=== PATIENT | male | born 1975 | race Caucasian/White ===

== ENCOUNTER 2018-06-04 17:29 | Emergency (ER) | payer MEDICAID ==
[2018-06-04 17:29] VITALS: BMI 20.6
[2018-06-04 17:45] VITALS: O2SAT 100
--- NOTE | 2018-06-04 17:57 | ED PDOC ---
Arrival/HPI - General Chief Complaint: Shortness Of Breath Historian: Patient - History of Present Illness Narrative History of Present Illness (Text): 06/04/18 17:54 42 y/o male, no significant pmh, nkda, chronic smoker, c/o shortness of breath for over 3 months. Pt. stated that he has shortness of breath, stated that he can not get the air in and off, more worsened when resting and thinking about it, no chest pain or palpitation, no night sweat, seen by his own pmd Dr. Natalya Morillo which he is on the albuterol and singulair but with limited relief, no weight loss, no night sweat, no rash, no other medical or psychological complaints. Past Medical History - Provider Review Nursing Documentation Reviewed: Yes - Infectious Disease Hx of Infectious Diseases: None - Tetanus Immunization Tetanus Immunization: Unknown - Genitourinary/Gynecological Hx Prostate Problems: Yes - Psychiatric Hx Psychophysiologic Disorder: No Hx Anxiety: No Hx Bipolar Disorder: No Hx Depression: No Hx Emotional Abuse: No Hx Hallucinations: No Hx Panic Disorder: No Hx Post Traumatic Stress Disorder: No Hx Psychosis: No Hx Physical Abuse: No Hx Schizophrenia: No Hx Sexual Abuse: No Hx Substance Use: No - Past Surgical History Past Surgical History: No Previous - Anesthesia Hx Anesthesia: Yes Hx Anesthesia Reactions: No Hx Malignant Hyperthermia: No - Suicidal Assessment Feels Threatened In Home Enviroment: No Family/Social History - Physician Review Nursing Documentation Reviewed: Yes Family/Social History: Unknown Family HX Smoking Status: Never Smoked Hx Alcohol Use: No Hx Substance Use: No Hx Substance Use Treatment: No Allergies/Home Meds Allergies/Adverse Reactions: Allergies fruit enzyme Allergy (Uncoded 06/04/18 17:48) ANAPHYLAXIS Home Medications: Home Meds Medication Instructions Recorded Confirmed Albuterol HFA [Ventolin HFA 90 2 puff INH PRN PRN 06/04/18 06/04/18 mcg/actuation (8 g)] Montelukast Sodium [Singulair] 10 mg PO DAILY 06/04/18 06/04/18 Review of Systems - Review of Systems Constitutional: absent: Fatigue, Fevers Eyes: absent: Vision Changes ENT: absent: Hearing Changes Respiratory: SOB. absent: Cough, Sputum, Wheezing Cardiovascular: absent: Chest Pain Gastrointestinal: absent: Abdominal Pain, Nausea, Vomiting Skin: absent: Rash, Pruritis Neurological: absent: Headache, Dizziness Psychiatric: Anxiety. absent: Depression, Suicidal Ideation Physical Exam Vital Signs Reviewed: Yes Vital Signs Temp Pulse Resp BP Pulse Ox 06/04/18 17:44 116/74 06/04/18 17:42 97.3 F L 73 16 100 Temperature: Afebrile Blood Pressure: Normal Pulse: Regular Respiratory Rate: Normal Appearance: Positive for: Well-Appearing, Non-Toxic, Comfortable Pain Distress: None Mental Status: Positive for: Alert and Oriented X 3 - Systems Exam Head: Present: Atraumatic, Normocephalic Pupils: Present: PERRL Extroacular Muscles: Present: EOMI Conjunctiva: Present: Normal Mouth: Present: Moist Mucous Membranes Neck: Present: Normal Range of Motion Respiratory/Chest: Present: Clear to Auscultation, Good Air Exchange. No: Respiratory Distress, Accessory Muscle Use, Wheezes, Decreased Breath Sounds, Rales, Retracting, Rhonchi, Tachypneic, Tender to Palpation Cardiovascular: Present: Regular Rate and Rhythm, Normal S1, S2. No: Murmurs Abdomen: No: Tenderness, Distention, Peritoneal Signs Back: Present: Normal Inspection. No: CVA Tenderness, Midline Tenderness, Paraspinal Tenderness, Pain with Leg Raise, Decubitus Ulcer Upper Extremity: Present: Normal Inspection. No: Cyanosis, Edema Lower Extremity: Present: Normal Inspection. No: Edema Neurological: Present: GCS=15, CN II-XII Intact, Speech Normal, Motor Func Grossly Intact, Gait Normal, Memory Normal Skin: Present: Warm, Dry, Normal Color. No: Rashes Psychiatric: Present: Alert, Oriented x 3, Normal Insight, Normal Concentration Medical Decision Making ED Course and Treatment: 06/04/18 17:56 -labs -ekg -cxr -Duoneb -telemetry monitor -observe and reassess 06/04/18 20:30 -EKG: NSR @ 65 BPM, no ST elevation or depression, no T wave inversion, compared with previous ekg. -CXR ER wet read: COPD change, no active disease -Labs show no acute findings -Mg within normal limit -Trop after 24 hours, within normal limit -BNP within normal limit -Dimer within normal limit, PERC negative -Thyroid profile within normal limit. -UA show no UTI -UDS show no acute findings. -Pt. feels completely relief with the duonebs x 2, prednisone ordered -Discharge home with prednisone, continue the singulair and albuterol at home, stop smoking, follow up with your own pmd and loan services professional within 2 days, return to the ER for any new or worsening signs or symptoms. - RAD Interpretation Radiology Orders: 06/04/18 17:53 CHEST PORTABLE [RAD] Stat EXAM: CR Chest, 1 View. CLINICAL HISTORY: Sob COMPARISON: None provided. FINDINGS: LUNGS: The lungs appear clear. PLEURAL SPACES: No pleural effusion or pneumothorax. MEDIASTINUM: The cardiomediastinal silhouette is within normal limits. BONES: No aggressive appearing osseous lesion seen. IMPRESSION: No acute cardiopulmonary pathology is evident. Electronically signed on Jun 04, 2018 7:50:25 PM EST by: Gian Stone M.D., Certified by [facility], Diagnostic Radiolog [employer] Expert: Radiologist - EKG Interpretation EKG Interpretation (Text): 06/04/18 18:30 EKG: NSR @ 65 BPM, no ST elevation or depression, no T wave inversion, compared with previous ekg. Interpreted by ED Physician: Yes Type: 12 lead EKG Comparison: Com.w/previous EKG - Medication Orders Current Medication Orders: Albuterol/Ipratropium (Duoneb 3 Mg/0.5 Mg (3 Ml) Ud) 3 ml IH Q15M FELIX Stop: 06/04/18 18:31 - PA / SCHOOL JANITOR / Resident Statement MD/ has reviewed & agrees with the documentation as recorded. Disposition/Present on Arrival - Present on Arrival Any Indicators Present on Arrival: No History of DVT/PE: No History of Uncontrolled Diabetes: No Urinary Catheter: No History of Decub. Ulcer: No History Surgical Site Infection Following: None - Disposition Have Diagnosis and Disposition been Completed?: Yes Diagnosis: Dyspnea or other respiratory complaints Disposition: HOME/ ROUTINE Disposition Time: 20:32 Patient Plan: Discharge Patient Problems: Current Active Problems Problem Status Onset Dyspnea or other respiratory complaints Acute Condition: IMPROVED Additional Instructions: Discharge home with prednisone, continue the singulair and albuterol at home, stop smoking, follow up with your own pmd and loan services professional within 2 days, return to the ER for any new or worsening signs or symptoms. Prescriptions: Prednisone 50 mg PO DAILY #5 tab Referrals: Grecia Berg MD [Primary Care Provider] - Follow up with primary Grayson Dupree MD [Staff Provider] - Follow up with primary Forms: [employer] (Irish), WORK NOTE
[2018-06-04] MEDS: Albuterol-Ipratrop 3 mg / 0.5 (3 ml) UD IH SCH ×3 (18:17→18:38)
[2018-06-04 18:43] LABS: BASO # 0.02 K/mm3 (0.0-2.0); BASO % 0.3 % (0.0-3.0); EOS # 0.2 (0.0-0.7); EOS % 2.6 % (1.5-5.0); GRAN # 3.57 (1.4-6.5); GRAN % 55.5 % (50.0-68.0); HEMOGLOBIN 14.8 g/dL (14.0-18.0); LYMPH # 2.1 (1.2-3.4); MEAN CELL VOLUME 86.6 fl (80.0-105.0); MEAN CORPUSCULAR HEMOGLOBIN 30.1 pg (25.0-35.0); MEAN CORPUSCULAR HGB CONC 34.8 g/dl (31.0-37.0); MEAN PLATELET VOLUME 11.7 fl (7.0-11.0); MONO # 0.6 (0.1-0.6); MONO % 8.6 % (1.0-6.0); RBC 4.91 10^6/uL (3.5-6.1); RED CELL DISTRIBUTION WIDTH 13.1 % (11.5-14.5); WHITE BLOOD COUNT 6.4 10^3/uL (4.5-11.0)
[2018-06-04 19:03] LABS: ALB/GLOB RATIO 1.4 (1.1-1.8); ALBUMIN 4.4 g/dL (3.0-4.8); ALT/SGPT 28 U/L (7-56); AST/SGOT 21 U/L (17-59); BLOOD UREA NITROGEN 14 mg/dL (7-21); CALCIUM 9.4 mg/dL (8.4-10.5); GFR NON-AFRICAN AMERICAN > 60
[2018-06-04 19:14] LABS: TROPONIN I < 0.01 ng/mL
[2018-06-04 19:23] LABS: FREE T4 1.01 ng/dL (0.78-2.19)
[2018-06-04] MEDS ORDERED: Albuterol-Ipratrop 3 mg / 0.5 (3 ml) UD IH STA (19:49)
[2018-06-04 20:18] LABS: URINE BILIRUBIN NEGATIVE (NEGATIVE); URINE BLOOD NEGATIVE (NEGATIVE); URINE GLUCOSE (UA) NEGATIVE (NEGATIVE); URINE LEUKOCYTE ESTERASE NEGATIVE Leu/uL (NEGATIVE); URINE PROTEIN NEGATIVE mg/dL (<30 mg/dL); URINE UROBILINOGEN 0.2 E.U./dL (<1 E.U./dL)
[2018-06-04 20:26] LABS: BARBITURATES, UR NEGATIVE (NEGATIVE); BENZODIAZEPINES, UR NEGATIVE (NEGATIVE); OPIATES, UR NEGATIVE (NEGATIVE); PHENCYCLIDINE, UR NEGATIVE (NEGATIVE)
[2018-06-04 20:27] VITALS: RESP 18
[2018-06-04 20:42] LABS: URINE APPEARANCE CLEAR (CLEAR); URINE COLOR LIGHT YELLOW (YELLOW)
[2018-06-04 21:22] VITALS: BP 128/68; PULSE 82; TEMP 98
--- NOTE | 2018-06-05 09:16 | RAD ---
Date of service: 06/04/2018 HISTORY: medical clearance COMPARISON: 12/16/2014 FINDINGS: LUNGS: No active pulmonary disease. PLEURA: No significant pleural effusion identified, no pneumothorax apparent. CARDIOVASCULAR: No aortic atherosclerotic calcification present. Normal cardiac size. No pulmonary vascular congestion. OSSEOUS STRUCTURES: No significant abnormalities. VISUALIZED UPPER ABDOMEN: Normal. OTHER FINDINGS: None. IMPRESSION: No active disease.
--- NOTE | 2018-06-05 11:09 | CARD ---
APPROVED REPORT Date of service: 06/04/2018 EKG Measurement Heart [id number] <Conclusion> Normal sinus rhythm Normal ECG
== END 2018-06-04 21:22 | disposition home or self-care (01) ==
LOC: ED 17:29
DX: R06.00 Dyspnea, unspecified (principal)

== ENCOUNTER 2018-11-12 15:49 | Observation (INO) | payer MEDICAID ==
[2018-11-12 16:17] LABS: HEMOGLOBIN 14.9 g/dL (14.0-18.0); MEAN CORPUSCULAR HEMOGLOBIN 29.9 pg (25.0-35.0); MEAN CORPUSCULAR HGB CONC 33.9 g/dl (31.0-37.0); MEAN PLATELET VOLUME 12.2 fl (7.0-11.0); RBC 4.99 10^6/uL (3.5-6.1); RED CELL DISTRIBUTION WIDTH 13.6 % (11.5-14.5)
[2018-11-12 16:27] LABS: ALB/GLOB RATIO 1.4 (1.1-1.8); ALBUMIN 4.6 g/dL (3.0-4.8); BLOOD UREA NITROGEN 15 mg/dL (7-21); CALCIUM 9.4 mg/dL (8.4-10.5); GFR NON-AFRICAN AMERICAN > 60
--- NOTE | 2018-11-12 16:30 | ED PDOC ---
Arrival/HPI <Arturo Leyva - Last Filed: 11/12/18 17:26> - General Historian: Patient - History of Present Illness Narrative History of Present Illness (Text): 11/12/18 16:20 Pt is a 43 yo male with a PMH of hypothyroid, active tobacco use, HLD who presents to the ED complaining of SOB and 10/10 pressure like chest pain which started 2 days ago. 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 Pt states the pain radiates to his shoulders, and his arms. Pt states the pain/SOB is worse with exertion. Pt denies nausea, vomiting, diarrhea. Time/Duration: < week Symptom Onset: Gradual Symptom Course: Worsening Quality: Pressure Severity Level: 10 Context: Exertion <Jeffery Manzano - Last Filed: 11/12/18 18:46> - General Chief Complaint: Shortness Of Breath Past Medical History - Provider Review Nursing Documentation Reviewed: Yes Primary Care Provider: Grecia eBrg - Infectious Disease Hx of Infectious Diseases: None - Tetanus Immunization Tetanus Immunization: Unknown - Genitourinary/Gynecological Hx Prostate Problems: Yes - Psychiatric Hx Psychophysiologic Disorder: No Hx Anxiety: No Hx Bipolar Disorder: No Hx Depression: No Hx Emotional Abuse: No Hx Hallucinations: No Hx Panic Disorder: No Hx Post Traumatic Stress Disorder: No Hx Psychosis: No Hx Physical Abuse: No Hx Schizophrenia: No Hx Sexual Abuse: No Hx Substance Use: No - Past Surgical History Past Surgical History: No Previous - Anesthesia Hx Anesthesia: Yes Hx Anesthesia Reactions: No Hx Malignant Hyperthermia: No - Suicidal Assessment Feels Threatened In Home Enviroment: No <Jeffery Manzano - Last Filed: 11/12/18 18:46> Family/Social History Family/Social History: No Known Family HX Smoking Status: Current Some Days Smoker Hx Alcohol Use: No Hx Substance Use: No Hx Substance Use Treatment: No <Jeffery Manzano - Last Filed: 11/12/18 18:46> Allergies/Home Meds <Arturo Leyva - Last Filed: 11/12/18 17:26> <Jeffery Manzano - Last Filed: 11/12/18 18:46> Allergies/Adverse Reactions: Allergies fruit enzyme Allergy (Uncoded 06/04/18 17:48) ANAPHYLAXIS Home Medications: Home Meds Medication Instructions Recorded Confirmed Albuterol HFA [Ventolin HFA 90 2 puff INH PRN PRN 06/04/18 06/04/18 mcg/actuation (8 g)] Montelukast Sodium [Singulair] 10 mg PO DAILY 06/04/18 06/04/18 Review of Systems - Review of Systems Constitutional: Normal Eyes: Normal ENT: Normal Respiratory: Normal Cardiovascular: Chest Pain, Palpitations Gastrointestinal: Normal Musculoskeletal: Normal Skin: Normal Neurological: Normal Endocrine: Normal Hemo/Lymphatic: Normal Psychiatric: Normal <Jeffery Manzano - Last Filed: 11/12/18 18:46> Physical Exam Vital Signs Temp Pulse Resp BP Pulse Ox 11/12/18 16:02 68 106/76 100 11/12/18 15:55 97.9 F 65 18 106/76 100 <Arturo Leyva - Last Filed: 11/12/18 17:26> Vital Signs Reviewed: Yes Vital Signs Temp Pulse Resp BP Pulse Ox 11/12/18 16:02 106/76 100 11/12/18 15:55 97.9 F 65 18 106/76 100 Temperature: Afebrile Blood Pressure: Normal Pulse: Regular Respiratory Rate: Normal Appearance: Positive for: Well-Appearing Mental Status: Positive for: Alert and Oriented X 3 - Systems Exam Head: Present: Atraumatic, Normocephalic Pupils: Present: PERRL Extroacular Muscles: Present: EOMI Mouth: Present: Moist Mucous Membranes Neck: Present: Normal Range of Motion Respiratory/Chest: Present: Clear to Auscultation, Good Air Exchange. No: Respiratory Distress, Accessory Muscle Use Cardiovascular: Present: Regular Rate and Rhythm, Normal S1, S2 Abdomen: No: Tenderness, Distention, Normal Bowel Sounds Upper Extremity: Present: Normal Inspection Lower Extremity: Present: Normal Inspection Neurological: Present: GCS=15, CN II-XII Intact Skin: Present: Warm, Dry Psychiatric: Present: Alert, Oriented x 3 <Jeffery Manzano - Last Filed: 11/12/18 18:46> Medical Decision Making - Lab Interpretations Lab Results: APTT 38.8 Seconds (26.9-38.3) H 11/12/18 16:05 Total Bilirubin 0.9 mg/dL (0.2-1.3) 11/12/18 16:05 AST 32 U/L (17-59) 11/12/18 16:05 ALT 21 U/L (7-56) 11/12/18 16:05 Alkaline Phosphatase 51 U/L (38-126) 11/12/18 16:05 Total Protein 8.0 g/dL (5.8-8.3) 11/12/18 16:05 Albumin 4.6 g/dL (3.0-4.8) 11/12/18 16:05 Globulin 3.3 gm/dL 11/12/18 16:05 Albumin/Globulin Ratio 1.4 (1.1-1.8) 11/12/18 16:05 - RAD Interpretation Radiology Orders: 11/12/18 16:28 CHEST PORTABLE [RAD] Stat - EKG Interpretation EKG Interpretation (Text): 11/12/18 16:31 ekg my read: nsr at 61 bpm, nml qrs, nml axis, no acute sttw abn Interpreted by ED Physician: Yes <Arturo Leyva - Last Filed: 11/12/18 17:26> ED Course and Treatment: 11/12/18 16:45 CBC CMP Trop CXR EKG NSR, no axis deviation, no signs of ST or T wave abnormalities PERC Rule for Pulmonary Embolism Age >50 > 0 = No HR >100 > 0 = No Ulisses% on room air <95% > 0 = No Unilateral leg swelling > 0 = No Hemoptysis > 0 = No Recent surgery or trauma > 0 = No Prior PE or DVT > 0 = No Hormone use > 0 = No No need for further workup, as <2% chance of PE. If no criteria are positive and clinicians pre-test probability is <15%, PERC Rule criteria are satisfied. HEART Score for Major Cardiac Events History > 2 = Highly suspicious EKG > 0 = Normal Age > 0 = <45 Risk factors > 2 = 3 risk factors or history of atherosclerotic disease Initial troponin > 0 = normal limit 4 points Moderate Score (4-6 points) Risk of MACE of 12-16.6%. Spoke with Dr Lluvia Valladares and discussed pt admission, discussed pt is a smoker, HLD, hypothyroid with pressure like chest pain HEART score. Discussed negative trop, EKG without signs of ST or T wave changes. Pt seen, examined, assessment and plan discussed with Dr Gordon Manzano PGY1 <Jeffery Maznano - Last Filed: 11/12/18 18:46> Disposition/Present on Arrival <Arturo Leyva - Last Filed: 11/12/18 17:26> - Present on Arrival Any Indicators Present on Arrival: No History of DVT/PE: No History of Uncontrolled Diabetes: No Urinary Catheter: No History of Decub. Ulcer: No History Surgical Site Infection Following: None - Disposition Have Diagnosis and Disposition been Completed?: Yes Disposition Time: 16:15 Patient Plan: Admission <Jeffery Manzano - Last Filed: 11/12/18 18:46> - Disposition Diagnosis: Chest pain Disposition: HOSPITALIZED Patient Problems: Current Active Problems Problem Status Onset Chest pain Acute Condition: FAIR Discharge Instructions (ExitCare): Chest Pain (ED) Forms: [employer] (Croatian)
[2018-11-12 16:31] LABS: ALT/SGPT 21 U/L (7-56); AST/SGOT 32 U/L (17-59)
[2018-11-12 17:03] LABS: INR 1.03; PROTHROMBIN TIME 11.4 SECONDS (9.4-12.5)
--- NOTE | 2018-11-12 17:31 | RAD ---
Date of service: 11/12/2018 HISTORY: Chest pain COMPARISON: 06/04/2018. FINDINGS: LUNGS: The lungs are well inflated and clear. PLEURA: No pleural effusions or pneumothorax. CARDIOVASCULAR: The heart is normal in size. No aortic atherosclerotic calcifications present. OSSEOUS STRUCTURES: Within normal limits for the patient's age. VISUALIZED UPPER ABDOMEN: Normal. OTHER FINDINGS: None. IMPRESSION: No active pulmonary disease.
--- NOTE | 2018-11-12 19:54 | CP.PCM.HP ---
<Rojas Marvin - Last Filed: 11/13/18 00:17> History of Present Illness - History of Present Illness History of Present Illness: HISTORY & PHYSICAL FOR HOSPITALIST SERVICE- ROJAS Marvin PGY1 43 y/o M with PMH hypothyroidism, tobacco abuse, HLD presents to ED with complaints of 6/10 substernal, "sharp", "pinching" chest pain with started 2 days ago with radiation to posterior neck with associated palpitations and shortness of breath that is worsened with movement. He tried taking ibuprofen with minimal. Currently he reports that pain is 4/10 and is reproducible with palpation and movement. Pt reports he has been anxious at work and doing more physical labor than usual. He reports having a cardiac cath done previously in 2002 at [facility] which was normal. He hasn't been following regularly with a premises technician. He otherwise denies fevers, chills, headache, dizziness, numbness, tingling, nausea, vomiting, constipation, diarrhea, dysuria, hematuria. PMH: hypothyroidism, HLD All: seasonal PSH: denies SH: tobacco abuse, 1/2 pack/day 10+ years. Occasional ETOH use, no illicit drug abuse. 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 Grecia Berg Present on Admission - Present on Admission Any Indicators Present on Admission: No Review of Systems - Review of Systems Review of Systems: per HPI Past Patient History - Infectious Disease Hx of Infectious Diseases: None - Tetanus Immunizations Tetanus Immunization: Unknown - Past Social History Smoking Status: Current Some Days Smoker - GENITOURINARY/GYNECOLOGICAL Hx Prostate Problems: Yes - PSYCHIATRIC Hx Psychophysiologic Disorder: No Hx Anxiety: No Hx Bipolar Disorder: No Hx Depression: No Hx Emotional Abuse: No Hx Hallucinations: No Hx Panic Symptoms: No Hx Post Traumatic Stress Disorder: No Hx Psychosis: No Hx Physical Abuse: No Hx Schizophrenia: No Hx Sexual Abuse: No Hx Substance Use: No - SURGICAL HISTORY Hx Surgeries: No - ANESTHESIA Hx Anesthesia: Yes Hx Anesthesia Reactions: No Hx Malignant Hyperthermia: No Meds Allergies/Adverse Reactions: Allergies Allergy/AdvReac Type Severity Reaction Status Date / Time fruit enzyme Allergy ANAPHYLAXIS Uncoded 06/04/18 17:48 Physical Exam - Constitutional Appears: Well, Non-toxic, No Acute Distress - Head Exam Head Exam: NORMAL INSPECTION, NORMOCEPHALIC - Eye Exam Eye Exam: EOMI, Normal appearance - ENT Exam ENT Exam: Mucous Membranes Moist, Normal Exam - Neck Exam Neck exam: Positive for: Normal Inspection - Respiratory Exam Respiratory Exam: Clear to Auscultation Bilateral, NORMAL BREATHING PATTERN - Cardiovascular Exam Cardiovascular Exam: REGULAR RHYTHM, +S1, +S2 - GI/Abdominal Exam GI & Abdominal Exam: Soft. absent: Tenderness - Extremities Exam Extremities exam: Positive for: normal inspection. Negative for: calf tenderness - Back Exam Back exam: NORMAL INSPECTION - Neurological Exam Neurological exam: Alert, Oriented x3 - Psychiatric Exam Psychiatric exam: Normal Affect, Normal Mood - Skin Skin Exam: Dry, Intact, Warm Results - Vital Signs Recent Vital Signs: Last Vital Signs Temp 97.9 F 11/12/18 15:55 Pulse 51 L 11/12/18 18:13 Resp 16 11/12/18 18:13 BP 107/67 11/12/18 18:13 Pulse Ox 100 11/12/18 18:13 - Labs Result Diagrams: 11/12/18 16:05 11/12/18 16:05 Labs: Laboratory Results - last 24 hr 11/12/18 11/12/18 11/12/18 16:05 16:05 16:05 WBC 7.0 RBC 4.99 Hgb 14.9 Hct 43.9 MCV 88.0 MCH 29.9 MCHC 33.9 RDW 13.6 Plt Count 157 MPV 12.2 H PT INR APTT 38.8 H Sodium 141 Potassium 4.3 Chloride 103 Carbon Dioxide 28 Anion Gap 14 BUN 15 Creatinine 0.7 L Est GFR ( Amer) > 60 Est GFR (Non-Af Amer) > 60 Random Glucose 71 Calcium 9.4 Total Bilirubin 0.9 AST 32 ALT 21 Alkaline Phosphatase 51 Troponin I Total Protein 8.0 Albumin 4.6 Globulin 3.3 Albumin/Globulin Ratio 1.4 11/12/18 11/12/18 16:15 16:15 WBC RBC Hgb Hct MCV MCH MCHC RDW Plt Count MPV PT 11.4 INR 1.03 APTT Sodium Potassium Chloride Carbon Dioxide Anion Gap BUN Creatinine Est GFR ( Amer) Est GFR (Non-Af Amer) Random Glucose Calcium Total Bilirubin AST ALT Alkaline Phosphatase Troponin I < 0.01 Total Protein Albumin Globulin Albumin/Globulin Ratio Assessment & Plan - Assessment and Plan (Free Text) Assessment: 43 y/o M with PMH of hypothyroidism, HLD, tobacco abuse admitted for chest pain to r/o ACS Plan: Chest pain r/o ACS Initial EKG: NSR, no ST/T wave changes , Initial troponin negative Trend troponin Q6h continue daily aspirin f/u lipid panel, TSH/FT4, Hgb A1c Hyperlipidemia Hx of hypertriglyceridemia will order lipid panel Tobacco use disorder DVT/GI: Lovenox/pepcid Case reviewed with attending physician, <Fausto Paris - Last Filed: 11/13/18 06:17> Results - Vital Signs Recent Vital Signs: Last Vital Signs Temp 98.6 F 11/12/18 23:00 Pulse 59 L 11/13/18 02:00 Resp 20 11/12/18 23:00 BP 106/66 11/12/18 23:00 Pulse Ox 99 11/12/18 20:56 - Labs Result Diagrams: 11/13/18 04:00 11/13/18 04:00 Labs: Laboratory Results - last 24 hr 11/12/18 11/12/18 11/12/18 16:05 16:05 16:05 WBC 7.0 RBC 4.99 Hgb 14.9 Hct 43.9 MCV 88.0 MCH 29.9 MCHC 33.9 RDW 13.6 Plt Count 157 MPV 12.2 H Neut % (Auto) Lymph % (Auto) [place] % (Auto) Eos % (Auto) Baso % (Auto) Lymph # (Auto) [place] # (Auto) Eos # (Auto) Baso # (Auto) Absolute Neuts (auto) PT INR APTT 38.8 H Sodium 141 Potassium 4.3 Chloride 103 Carbon Dioxide 28 Anion Gap 14 BUN 15 Creatinine 0.7 L Est GFR ( Amer) > 60 Est GFR (Non-Af Amer) > 60 Random Glucose 71 Calcium 9.4 Total Bilirubin 0.9 AST 32 ALT 21 Alkaline Phosphatase 51 Troponin I Total Protein 8.0 Albumin 4.6 Globulin 3.3 Albumin/Globulin Ratio 1.4 Triglycerides Cholesterol LDL Cholesterol Direct HDL Cholesterol Free T4 TSH 3rd Generation 11/12/18 11/12/18 11/12/18 16:15 16:15 16:30 WBC RBC Hgb Hct MCV MCH MCHC RDW Plt Count MPV Neut % (Auto) Lymph % (Auto) [place] % (Auto) Eos % (Auto) Baso % (Auto) Lymph # (Auto) [place] # (Auto) Eos # (Auto) Baso # (Auto) Absolute Neuts (auto) PT 11.4 INR 1.03 APTT Sodium Potassium Chloride Carbon Dioxide Anion Gap BUN Creatinine Est GFR ( Amer) Est GFR (Non-Af Amer) Random Glucose Calcium Total Bilirubin AST ALT Alkaline Phosphatase Troponin I < 0.01 Total Protein Albumin Globulin Albumin/Globulin Ratio Triglycerides 273 H Cholesterol 184 LDL Cholesterol Direct 107 HDL Cholesterol 47 Free T4 TSH 3rd Generation 11/12/18 11/12/18 11/13/18 16:30 21:50 04:00 WBC RBC Hgb Hct MCV MCH MCHC RDW Plt Count MPV Neut % (Auto) Lymph % (Auto) [place] % (Auto) Eos % (Auto) Baso % (Auto) Lymph # (Auto) [place] # (Auto) Eos # (Auto) Baso # (Auto) Absolute Neuts (auto) PT INR APTT Sodium 141 Potassium 4.4 Chloride 103 Carbon Dioxide 31 Anion Gap 12 BUN 13 Creatinine 0.8 Est GFR ( Amer) > 60 Est GFR (Non-Af Amer) > 60 Random Glucose 94 Calcium 9.3 Total Bilirubin 0.7 AST 21 ALT 20 Alkaline Phosphatase 50 Troponin I < 0.01 < 0.01 Total Protein 7.2 Albumin 4.3 Globulin 3.0 Albumin/Globulin Ratio 1.4 Triglycerides Cholesterol LDL Cholesterol Direct HDL Cholesterol Free T4 1.46 TSH 3rd Generation 3.11 11/13/18 04:00 WBC 8.0 RBC 4.72 Hgb 14.0 Hct 41.4 L MCV 87.7 MCH 29.7 MCHC 33.8 RDW 13.4 Plt Count 143 MPV 12.0 H Neut % (Auto) 62.7 Lymph % (Auto) 29.4 [place] % (Auto) 5.2 Eos % (Auto) 2.5 Baso % (Auto) 0.2 Lymph # (Auto) 2.4 [place] # (Auto) 0.4 Eos # (Auto) 0.2 Baso # (Auto) 0.02 Absolute Neuts (auto) 5.03 PT INR APTT Sodium Potassium Chloride Carbon Dioxide Anion Gap BUN Creatinine Est GFR ( Amer) Est GFR (Non-Af Amer) Random Glucose Calcium Total Bilirubin AST ALT Alkaline Phosphatase Troponin I Total Protein Albumin Globulin Albumin/Globulin Ratio Triglycerides Cholesterol LDL Cholesterol Direct HDL Cholesterol Free T4 TSH 3rd Generation Attending/Attestation - Attestation I have personally seen and examined this patient.: Yes I have fully participated in the care of the patient.: Yes I have reviewed all pertinent clinical information: Yes
[2018-11-12 20:52] VITALS: BMI 22.3
[2018-11-12 21:34] LABS: HDL CHOLESTEROL 47 mg/dL (29-60)
[2018-11-12 21:44] LABS: LDL CHOLESTEROL 107 mg/dL (0-129)
[2018-11-12 21:51] LABS: FREE T4 1.46 ng/dL (0.78-2.19)
[2018-11-13 04:06] LABS: BASO # 0.02 K/mm3 (0.0-2.0); BASO % 0.2 % (0.0-3.0); EOS # 0.2 (0.0-0.7); EOS % 2.5 % (1.5-5.0); LYMPH # 2.4 (1.2-3.4); LYMPH % 29.4 % (22.0-35.0); MEAN CELL VOLUME 87.7 fl (80.0-105.0); MEAN CORPUSCULAR HEMOGLOBIN 29.7 pg (25.0-35.0); MEAN CORPUSCULAR HGB CONC 33.8 g/dl (31.0-37.0); MONO # 0.4 (0.1-0.6); MONO % 5.2 % (1.0-6.0); RBC 4.72 10^6/uL (3.5-6.1); RED CELL DISTRIBUTION WIDTH 13.4 % (11.5-14.5)
[2018-11-13 04:39] LABS: ALB/GLOB RATIO 1.4 (1.1-1.8); ALBUMIN 4.3 g/dL (3.0-4.8); ALT/SGPT 20 U/L (7-56); AST/SGOT 21 U/L (17-59); BLOOD UREA NITROGEN 13 mg/dL (7-21); CALCIUM 9.3 mg/dL (8.4-10.5); GFR NON-AFRICAN AMERICAN > 60
[2018-11-13 04:50] LABS: TROPONIN I < 0.01 ng/mL
[2018-11-13 08:16] VITALS: BP 98/61; RESP 18; TEMP 97.8; O2SAT 98
--- NOTE | 2018-11-13 09:16 | CARD ---
APPROVED REPORT Date of service: 11/12/2018 EKG Measurement Heart [id number] <Conclusion> Normal sinus rhythm Normal ECG
[2018-11-13] MEDS ORDERED: Levothyroxine 75 MCG TAB PO SCH (10:00)
[2018-11-13] MEDS ORDERED: Enoxaparin 40 mg Syringe SC SCH (10:00)
[2018-11-13 11:53] VITALS: PULSE 58
--- NOTE | 2018-11-13 12:36 | CON ---
DATE: 11/13/2018 CONSULTATION REQUESTING PHYSICIAN: Dr. Valladares. REASON FOR CONSULTATION: Chest pain. HISTORY OF PRESENT ILLNESS: This is a 43-year-old man with a history of tobacco abuse who had hyperlipidemia and presented to the emergency room complaining of a retrosternal chest discomfort. This occurred at work. He described it as a retrosternal tightness and at times, a sharp pain radiating to his neck. He became concerned and presented to the emergency room. Initial electrocardiogram and cardiac enzymes have been negative. His episode occurred at work. He has been doing more physical activity lately. He apparently underwent a cardiac catheterization by a cast iron drain pipe layer at [facility] in 2002; he was told that he had normal coronary arteries at that time. He does smoke approximately half pack per day. He has quit on and off over the years. PAST MEDICAL HISTORY: He does have a history of hyperlipidemia and hypothyroidism. He is not hypertensive or diabetic. There is no family history of premature heart disease. MEDICATIONS: Vitamin supplement and Synthroid 75 mcg daily. ALLERGIES: No drug allergies noted. SOCIAL HISTORY: He drinks alcohol occasionally and he smokes as mentioned above. He works as a restaurant server. FAMILY HISTORY: Father is alive and in good health as is his brother. His mother from lymphoma at the age of 46. REVIEW OF SYSTEMS: A 12-point review of systems is, otherwise, unremarkable. He does not exercise regularly, but states that he is very active at work. He denies any PND, orthopnea, or edema. PHYSICAL EXAMINATION: GENERAL: He is a thin, middle-aged man. VITAL SIGNS: Blood pressure is 100/66, with a pulse of 56 in sinus, respirations are 14. He is afebrile. HEENT: Normocephalic, atraumatic. NECK: Supple. No JVD noted. CHEST: Clear to auscultation and percussion. HEART: PMI in normal position. No pathological murmurs or gallops noted. ABDOMEN: Soft, nontender with normoactive bowel sounds. EXTREMITIES: No clubbing, cyanosis, or edema. SKIN: Warm and dry. PSYCHIATRIC: Normal mood and affect. NEUROLOGIC: Alert and oriented x3. No gross motor or sensory deficits noted. DIAGNOSTIC/LABORATORY DATA: Three sets of cardiac enzymes were negative. White count is 7, hemoglobin and hematocrit of 14.9 and 43.9, with a platelet count of 157,000. PT/PTT 12 and 38.8, potassium 4.4, BUN and creatinine 13 and 0.8. Cholesterol 184, with an LDL of 107, HDL 47, triglycerides 276, TSH 3.11. Electrocardiogram revealed a sinus rhythm that is within normal limits. Chest x-ray reveals a normal cardiac silhouette with clear lung guerra. IMPRESSION: 1. Chest pain. No evidence of acute cardiac injury. Symptoms are cardiac, GI, or musculoskeletal in nature. 2. Significant cardiac risk factors given his history of tobacco abuse and hyperlipidemia. 3. The rest of the problems as noted. RECOMMENDATIONS: At this time, discharge home appears reasonable. One aspirin daily should be added to his regimen for now. An outpatient stress test will be arranged. The need for smoking abstinence was stressed heavily to him. Maintenance of an LDL below 100 was advised as well. Thank you for this consultation. We will happily see him in the future as needed. Alvin Rueda MD MTDD
--- NOTE | 2018-11-13 13:51 | CP.PCM.DIS ---
<Neil Welch - Last Filed: 11/13/18 15:58> Provider - Provider Date of Admission: 11/12/18 18:37 Attending physician: Lluvia Valladares DO Consults: 11/12/18 20:44 Cardiology Consult Routine Comment: Consulting Provider: Alvin Rueda Consulting Physician: Alvin Rueda Reason for Consult: chest pain, r/o ACS 11/12/18 22:11 Transition In Care/Readmission Reduction Routine Comment: Physician Instructions: Reason For Exam: routine Time Spent in preparation of Discharge (in minutes): 45 Hospital Course - Lab Results Lab Results: Most Recent Lab Values WBC 8.0 10^3/uL (4.5-11.0) 11/13/18 04:00 RBC 4.72 10^6/uL (3.5-6.1) 11/13/18 04:00 Hgb 14.0 g/dL (14.0-18.0) 11/13/18 04:00 Hct 41.4 % (42.0-52.0) L 11/13/18 04:00 MCV 87.7 fl (80.0-105.0) 11/13/18 04:00 MCH 29.7 pg (25.0-35.0) 11/13/18 04:00 MCHC 33.8 g/dl (31.0-37.0) 11/13/18 04:00 RDW 13.4 % (11.5-14.5) 11/13/18 04:00 Plt Count 143 10^3/uL (120.0-450.0) 11/13/18 04:00 MPV 12.0 fl (7.0-11.0) H 11/13/18 04:00 Neut % (Auto) 62.7 % (50.0-68.0) 11/13/18 04:00 Lymph % (Auto) 29.4 % (22.0-35.0) 11/13/18 04:00 [place] % (Auto) 5.2 % (1.0-6.0) 11/13/18 04:00 Eos % (Auto) 2.5 % (1.5-5.0) 11/13/18 04:00 Baso % (Auto) 0.2 % (0.0-3.0) 11/13/18 04:00 Lymph # (Auto) 2.4 (1.2-3.4) 11/13/18 04:00 [place] # (Auto) 0.4 (0.1-0.6) 11/13/18 04:00 Eos # (Auto) 0.2 (0.0-0.7) 11/13/18 04:00 Baso # (Auto) 0.02 K/mm3 (0.0-2.0) 11/13/18 04:00 Absolute Neuts (auto) 5.03 (1.4-6.5) 11/13/18 04:00 PT 11.4 SECONDS (9.4-12.5) 11/12/18 16:15 INR 1.03 11/12/18 16:15 APTT 38.8 Seconds (26.9-38.3) H 11/12/18 16:05 Sodium 141 mmol/L (132-148) 11/13/18 04:00 Potassium 4.4 mmol/L (3.6-5.0) 11/13/18 04:00 Chloride 103 mmol/L (98-107) 11/13/18 04:00 Carbon Dioxide 31 mmol/L (21-33) 11/13/18 04:00 Anion Gap 12 (10-20) 11/13/18 04:00 BUN 13 mg/dL (7-21) 11/13/18 04:00 Creatinine 0.8 mg/dl (0.8-1.5) 11/13/18 04:00 Est GFR ( Amer) > 60 11/13/18 04:00 Est GFR (Non-Af Amer) > 60 11/13/18 04:00 Random Glucose 94 mg/dL (70-110) 11/13/18 04:00 Hemoglobin A1c 5.3 % (4.2-6.5) 11/12/18 16:30 Calcium 9.3 mg/dL (8.4-10.5) 11/13/18 04:00 Total Bilirubin 0.7 mg/dL (0.2-1.3) 11/13/18 04:00 AST 21 U/L (17-59) 11/13/18 04:00 ALT 20 U/L (7-56) 11/13/18 04:00 Alkaline Phosphatase 50 U/L (38-126) 11/13/18 04:00 Troponin I < 0.01 ng/mL 11/13/18 04:00 Total Protein 7.2 g/dL (5.8-8.3) 11/13/18 04:00 Albumin 4.3 g/dL (3.0-4.8) 11/13/18 04:00 Globulin 3.0 gm/dL 11/13/18 04:00 Albumin/Globulin Ratio 1.4 (1.1-1.8) 11/13/18 04:00 Triglycerides 273 mg/dL (35-160) H 11/12/18 16:30 Cholesterol 184 mg/dL (130-200) 11/12/18 16:30 LDL Cholesterol Direct 107 mg/dL (0-129) 11/12/18 16:30 HDL Cholesterol 47 mg/dL (29-60) 11/12/18 16:30 Free T4 1.46 ng/dL (0.78-2.19) 11/12/18 16:30 TSH 3rd Generation 3.11 mIU/mL (0.46-4.68) 11/12/18 16:30 - Hospital Course Hospital Course: 43 y/o M with PMH hypothyroidism, tobacco abuse, HLD presents to ED with complaints of sharp, substernal, 8/10 chest pain that started 2 days ago with radiation to posterior neck with associated palpitations and shortness of breath that is worsened with movement. Patient admitted for chest patient to r/o ACS. EKG showed NSR, no ST/T wave changes. Troponins negative x3. CXR showed no a ctive pulmonary disease. [place] drug screen negative. Triglycerides levels elevated. Patient was seen by cargo and container inspector Dr Chandler who recommended outpatient cardiac stress test. Patient is actively a smoker and gets shortness of breath and uses inhalhers. Symptoms could be related to pulmonary pathology. We recommended to see a batch mixer and go for outpatient pulmonary function test as well. Patient is hemodynamically stable, afebrile, no leukocytosis and ready for home discharge today. Discharge Exam - Head Exam Head Exam: NORMAL INSPECTION, NORMOCEPHALIC - Eye Exam Eye Exam: EOMI, Normal appearance, PERRL Pupil Exam: NORMAL ACCOMODATION, PERRL - ENT Exam ENT Exam: Mucous Membranes Moist - Respiratory Exam Respiratory Exam: NORMAL BREATHING PATTERN. absent: Rales, Rhonchi, Wheezes - Cardiovascular Exam Cardiovascular Exam: REGULAR RHYTHM, +S1, +S2. absent: Gallop, Rubs - GI/Abdominal Exam GI & Abdominal Exam: Normal Bowel Sounds, Soft, Unremarkable. absent: Mass, Organomegaly, Pulsatile Mass - Extremities Exam Extremities exam: full ROM, normal capillary refill, pedal pulses present - Back Exam Back exam: FULL ROM - Neurological Exam Neurological exam: Alert, CN II-XII Intact, Normal Gait, Oriented x3, Reflexes Normal - Psychiatric Exam Psychiatric exam: Normal Affect, Normal Mood - Skin Skin Exam: Dry, Intact, Normal Color, Warm Discharge Plan - Follow Up Plan Condition: FAIR Disposition: HOME/ ROUTINE Instructions: Quitting Smoking for Older Adults, Smoking: Not Just Harmful to Your Lungs and Heart, Chest Pain (DC), Quitting Smoking, Drugs to Help You Stop Using Tobacco Additional Instructions: You can continue taking your home medications. You can take your Aspirin daily. Follow up with PMD Dr. Grecia Yu. Please schedule your stress test with Dr Rueda outpatient. Please follow up with a lung doctor outpatient in 1 week. Please obtain referral from your primary care doctor. Return to the emergency room for any concerning symptoms. Referrals: Grecia Berg MD [Family Provider] - Alvin Rueda MD [Staff Provider] - <Tete Naik - Last Filed: 11/13/18 16:35> Provider - Provider Date of Admission: 11/12/18 18:37 Attending physician: Lluvia Valladares DO Consults: 11/12/18 20:44 Cardiology Consult Routine Comment: Consulting Provider: Alvin Rueda Consulting Physician: Alvin Rueda Reason for Consult: chest pain, r/o ACS 11/12/18 22:11 Transition In Care/Readmission Reduction Routine Comment: Physician Instructions: Reason For Exam: routine Hospital Course - Lab Results Lab Results: Most Recent Lab Values WBC 8.0 10^3/uL (4.5-11.0) 11/13/18 04:00 RBC 4.72 10^6/uL (3.5-6.1) 11/13/18 04:00 Hgb 14.0 g/dL (14.0-18.0) 11/13/18 04:00 Hct 41.4 % (42.0-52.0) L 11/13/18 04:00 MCV 87.7 fl (80.0-105.0) 11/13/18 04:00 MCH 29.7 pg (25.0-35.0) 11/13/18 04:00 MCHC 33.8 g/dl (31.0-37.0) 11/13/18 04:00 RDW 13.4 % (11.5-14.5) 11/13/18 04:00 Plt Count 143 10^3/uL (120.0-450.0) 11/13/18 04:00 MPV 12.0 fl (7.0-11.0) H 11/13/18 04:00 Neut % (Auto) 62.7 % (50.0-68.0) 11/13/18 04:00 Lymph % (Auto) 29.4 % (22.0-35.0) 11/13/18 04:00 [place] % (Auto) 5.2 % (1.0-6.0) 11/13/18 04:00 Eos % (Auto) 2.5 % (1.5-5.0) 11/13/18 04:00 Baso % (Auto) 0.2 % (0.0-3.0) 11/13/18 04:00 Lymph # (Auto) 2.4 (1.2-3.4) 11/13/18 04:00 [place] # (Auto) 0.4 (0.1-0.6) 11/13/18 04:00 Eos # (Auto) 0.2 (0.0-0.7) 11/13/18 04:00 Baso # (Auto) 0.02 K/mm3 (0.0-2.0) 11/13/18 04:00 Absolute Neuts (auto) 5.03 (1.4-6.5) 11/13/18 04:00 PT 11.4 SECONDS (9.4-12.5) 11/12/18 16:15 INR 1.03 11/12/18 16:15 APTT 38.8 Seconds (26.9-38.3) H 11/12/18 16:05 Sodium 141 mmol/L (132-148) 11/13/18 04:00 Potassium 4.4 mmol/L (3.6-5.0) 11/13/18 04:00 Chloride 103 mmol/L (98-107) 11/13/18 04:00 Carbon Dioxide 31 mmol/L (21-33) 11/13/18 04:00 Anion Gap 12 (10-20) 11/13/18 04:00 BUN 13 mg/dL (7-21) 11/13/18 04:00 Creatinine 0.8 mg/dl (0.8-1.5) 11/13/18 04:00 Est GFR ( Amer) > 60 11/13/18 04:00 Est GFR (Non-Af Amer) > 60 11/13/18 04:00 Random Glucose 94 mg/dL (70-110) 11/13/18 04:00 Hemoglobin A1c 5.3 % (4.2-6.5) 11/12/18 16:30 Calcium 9.3 mg/dL (8.4-10.5) 11/13/18 04:00 Total Bilirubin 0.7 mg/dL (0.2-1.3) 11/13/18 04:00 AST 21 U/L (17-59) 11/13/18 04:00 ALT 20 U/L (7-56) 11/13/18 04:00 Alkaline Phosphatase 50 U/L (38-126) 11/13/18 04:00 Troponin I < 0.01 ng/mL 11/13/18 04:00 Total Protein 7.2 g/dL (5.8-8.3) 11/13/18 04:00 Albumin 4.3 g/dL (3.0-4.8) 11/13/18 04:00 Globulin 3.0 gm/dL 11/13/18 04:00 Albumin/Globulin Ratio 1.4 (1.1-1.8) 11/13/18 04:00 Triglycerides 273 mg/dL (35-160) H 11/12/18 16:30 Cholesterol 184 mg/dL (130-200) 11/12/18 16:30 LDL Cholesterol Direct 107 mg/dL (0-129) 11/12/18 16:30 HDL Cholesterol 47 mg/dL (29-60) 11/12/18 16:30 Free T4 1.46 ng/dL (0.78-2.19) 11/12/18 16:30 TSH 3rd Generation 3.11 mIU/mL (0.46-4.68) 11/12/18 16:30 Attending/Attestation - Attestation I have personally seen and examined this patient.: Yes I have fully participated in the care of the patient.: Yes I have reviewed all pertinent clinical information, including history, physical exam and plan: Yes Notes (Text): 11/13/18 16:32 Attending note; Patient seen and examined with resident. Patient is alert and awake. Complaining of right-sided muscular/chest pain. Denies any palpitations, diaphoresis. Denies any nausea, vomiting. Tolerating diet well Patient is a 43-year-old male with PMH hypothyroidism, tobacco abuse, hyperlipidemia presents to ED with complaints of sharp, substernal, 8/10 chest pain that started 2 days ago with radiation to posterior neck with associated palpitations and shortness of breath that is worsened with movement. 1. Atypical chest pain; EKG showed normal sinus rhythm without significant ST-T changes. Cardiac enzymes x3 negative. Cardiology evaluation appreciated. Most likely musculoskeletal pain. Advised to continue aspirin as needed. Outpatient stress test recommended. 2. Smoking; smoking cessation is strongly advised . 3. Dietary education given. 4. Asthma; patient uses albuterol inhaler as needed. Advised to follow-up with pulmonary as outpatient. Currently with stable respiratory status. Advised to stop smoking. Patient will be discharged home today. Follow-up with PMD Dr. Grecia Berg. Diagnosis, follow-up plan discussed with patient and patient's in detail by the bedside.
--- NOTE | 2018-11-14 09:24 | CARD ---
APPROVED REPORT Date of service: 11/13/2018 EKG Measurement Heart [id number] <Conclusion> Sinus bradycardia Otherwise normal ECG
== END 2018-11-13 13:38 | disposition home or self-care (01) ==
LOC: ED 15:49 → ERH 18:37 → INTOOBSV 18:37 → ERH 20:29 → 3RSO 21:28
PROVIDERS: ADMIT Hospitalist; ATTEND Hospitalist
DX: R07.89 Other chest pain (principal); R00.2 Palpitations; R06.02 Shortness of breath; E03.9 Hypothyroidism, unspecified; E78.5 Hyperlipidemia, unspecified; F17.200 Nicotine dependence, unspecified, uncomplicated; J45.909 Unspecified asthma, uncomplicated; Z80.7 Family history of other malignant neoplasms of lymphoid, hematopoietic and related tissues
CPT/HCPCS: 36415; 71045; 80053; 80061; 83036; 84439; 84443; 84484; 85025; 85027; 85610; 85730; 93005; 99285; G0378